=== PATIENT | female | born 1965 | race Caucasian/White ===

== ENCOUNTER 2024-04-10 16:18 | Emergency (ER) | payer OTHER, SELFPAY ==
[2024-04-10 16:54] LABS: % Basophils 0.2 % (0-2); % Eosinophils 0.8 % (0-6); % Immature Granulocytes 0.2 % (0-0.5); % Lymphocytes 30.5 % (20.5-51.1); % Monocytes 7.3 % (1.7-9.3); Absolute Eosinophils 0.1 10^3/uL (0-0.7); Absolute Lymphocytes 1.9 10^3/uL (1.2-3.4); Absolute Monocytes 0.5 10^3/uL (0.1-0.6); Absolute Neutrophils 3.9 10^3/uL (1.4-6.5); Hematocrit 39.4 % (37.0-47.0); Hemoglobin 13.4 g/dL (12.0-16.0); Mean Corpuscular Hgb 33.3 pg (27.0-31.0); Mean Corpuscular Volume 97.8 fL (81.0-99.0); Mean Platelet Volume 9.3 fL (7.4-10.4); Nucleated Red Blood Cells % 0 %; Platelet Count 233 10^3/uL (130-400); Red Blood Cell Count 4.03 10^6/uL (4.20-5.40); Red Cell Dist. Width 11.7 % (11.5-14.5); White Blood Cell Count 6.3 10^3/uL (4.8-10.8)
[2024-04-10 17:20] LABS: ALT (SGPT) 16 U/L (0-35); AST (SGOT) 30 U/L (14-36); Albumin 4.8 g/dl (3.5-5.0); Alkaline Phosphatase 40 U/L (38-126); Blood Urea Nitrogen 14 mg/dl (7-17); Calcium 9.6 mg/dl (8.4-10.2); Carbon Dioxide 30 mmol/L (22-30); Chloride 99 mmol/L (98-107); Glucose 93 mg/dl (70-99); Potassium 4.2 mmol/L (3.5-5.1); Sodium 140 mmol/L (135-145); Total Bilirubin 0.5 mg/dl (0.2-1.3); Total Protein 7.5 g/dl (6.3-8.2); eGFR > 60.00
[2024-04-10 17:23] LABS: Troponin I < 0.012 ng/ml
--- NOTE | 2024-04-10 19:59 | ED.GENMED ---
History of Present Illness
General
Chief Complaint: Blood Pressure Problem
Time Seen by Provider: 04/10/24 19:05
History of Present Illness
History of Present Illness:
58-year-old female with history of hypertension and hyperlipidemia presenting to the emergency department for generally feeling unwell and elevated blood pressure. Patient reports for the past 3 days she has been feeling unwell with headache,
pressure around her eyes, chest pressure, tingling to her extremities, muscle aches. She called her primary care doctor today with her symptoms, who advised her to check her blood pressure, noted that it was elevated. Patient notes that she has
been on a combo medication since 2018 without issue. She does also report that she is been having left lower molar dental pain for several days, has a dentist appointment on Tuesday. Denies weakness to her extremities. Denies visual changes.
Denies difficulty breathing. Does note mild cough. Denies abdominal pain or GI symptoms. Denies any fever. Denies additional acute medical complaints.
Phy Exam
Physical Exam
Physical Exam:
General: Well-appearing, no clinical signs of dehydration, nontoxic and in no acute distress
HEENT: protecting airway, no significant swelling to the gumline, pain on palpation of tooth #32. No fluctuance. No trismus. Pupils equal and reactive bilaterally. Extraocular movements intact
Neck: appears supple
CV: Normal heart rate, regular rhythm
Resp: No accessory muscle use, no increased work of breathing
Abd: Soft and non-distended, no tenderness to palpation
Extremities: No deformities, no swelling
Neuro: alert, no focal neurologic deficit
: deferred
Rectal: deferred
Psych: Normal affect
Skin: Intact
Course
Orders/Labs/Results
Orders:
Orders
04/10/24 16:20
EKG [Electrocardiogram (*1)] Urgent
Reason for Study: Chest Pain
EKG- Treatment ONCE
04/10/24 16:30
Electrocardiogram (*1) Urgent
Reason for Study: Chest Pain
EKG- Treatment ONCE
04/10/24 16:35
Complete Blood Count/With Diff Urgent
Comprehensive Metabolic Panel Urgent
Troponin I Urgent
04/10/24 19:29
COVID-19 Antigen Urgent
Source: Nasal Swab
CR Chest - 2 Views Urgent
Comment:
Reason For Exam: cough
Abnormal Lab Results
04/10/24
16:35
RBC 4.03 L 10^6/uL
(4.20-5.40)
MCH 33.3 H pg
(27.0-31.0)
04/10/24 16:35
04/10/24 16:35
Vital Signs
Initial and Last Documented VS:
Initial Vital Signs
Temp Pulse Resp BP Pulse Ox
98.6 F 68 18 175/68 100
04/10/24 16:28 04/10/24 16:28 04/10/24 16:28 04/10/24 16:28 04/10/24 16:28
Last Documented Vital Signs
Temp Pulse Resp BP Pulse Ox
98.6 F 61 20 161/94 98
04/10/24 16:28 04/10/24 19:04 04/10/24 19:04 04/10/24 19:36 04/10/24 19:36
MDM/Problems Addressed
MDM/Problems Addressed:
58-year-old female with history of hypertension presenting to the emergency department for elevated blood pressure and generally feeling unwell. Vital signs on arrival are significant for high blood pressure, however has improved without acute
intervention.
Regarding patient's symptoms of feeling unwell, expresses body aches, headache, chest pressure. Suspect possible component of viral syndrome. Will check COVID. EKG obtained on arrival, nonischemic. Patient with minimal cardiac risk factors with
lower suspicion for ACS. Patient reports some tingling to her extremities, no focal neurologic deficits with intact strength and sensation bilaterally, without concern for stroke or central neurologic process. Patient's blood pressure is high,
however with lower suspicion for hypertensive urgency or emergency. Screening laboratory analysis sent, without any evidence of endorgan dysfunction. Regarding dental pain, no obvious drainable abscess, possible apical abscess. Patient's blood
pressure could be reactive to pain. Will start on a antibiotic until patient can see the dentist on Tuesday. At this time pending chest x-ray and COVID swab.
COVID swab negative and chest x-ray without acute cardiopulmonary disease. Patient remained stable. At this time feel stable for discharge with close interval follow-up with primary care doctor regarding her blood pressure. Patient started on
Pen-Vee K. Return precautions discussed and patient verbalized understanding
*EKG
Interpreted by ED Provider?: Yes
EKG Intrepretation Date: 04/10/24
EKG Intrepretation Time: 20:10
Interpretation: normal
Comparison EKG: no comparison EKG present
Heart Rate: 67
Rate: normal
Rhythm: sinus
[place]: normal axis
Interval: normal interval
QRS Pattern: normal QRS
Ischemia: no ischemia
*Critical Care Note
Total Time (30-74mins, 75-104mins- exclusive of procedures): Not Applicable
ED Attending Note
-
Portions of this chart may have been created with voice recognition software.� Occasional wrong word or��sound alike� substitutions may have occurred due to the inherent limitations of voice recognition software.
Discharge Plan
Departure
Referrals:
Vianey Luque MD [Family Provider] -
Interventions
Interventions:
*Risk Screen - Suicide Last Done: 04/10/24 19:50
*General Assessment Last Done: 04/10/24 19:50
*Neglect/Abuse Screening Last Done: 04/10/24 19:50
*ED COVID-19 Vaccine History Last Done: 04/10/24 19:50
ED- Cardiac Assessment Last Done: 04/10/24 19:40
ED- Neurological Assessment Last Done: 04/10/24 19:40
ED- Pulmonary Assessment Last Done: 04/10/24 19:40
Discharge Date and Time
Print Language: SLOVAK
[2024-04-10 20:31] LABS: COVID-19 Antigen Negative (Negative)
== END 2024-04-10 21:02 | disposition home or self-care (01) ==
LOC: EMR 16:18
PROVIDERS: Emergency Medicine; EMERGENCY PHYSICIAN Student in an Organized Health Care Education/Training Program; FAMILY PHYSICIAN Family Medicine
DX: I10 Essential (primary) hypertension (principal); E78.5 Hyperlipidemia, unspecified; K08.89 Other specified disorders of teeth and supporting structures; R05.9 Cough, unspecified
CPT/HCPCS: 99285; 71046; 80053; 84484; 85025; 87811; 93005

== ENCOUNTER → 2024-10-29 09:26 | Outpatient (REF) | payer OTHER, SELFPAY | LOC: HWRAD 09:26 | PROVIDERS: ATTENDING PHYSICIAN Family Medicine | DX: R10.9 Unspecified abdominal pain (principal) | CPT/HCPCS: 74176 ==